=== PATIENT | male | born 1950 | race Caucasian/White ===

== ENCOUNTER 2021-06-12 18:16 | Emergency (ER) | payer MEDICARE, BC ==
[~2021-06-12] VITALS: Ht 177.8 cm; Wt 97.7 kg
[2021-06-12 22:56] LABS: BASOPHILS # (AUTO) 0.1 X10'3 (0-0.2); BASOPHILS % (AUTO) 0.6 % (0-1); EOSINOPHILS # (AUTO) 0.2 X10'3 (0-0.9); EOSINOPHILS % (AUTO) 1.8 % (0-6); HEMATOCRIT 45.9 % (42.0-52.0); HEMOGLOBIN 16.1 g/dl (14.0-17.9); LYMPHOCYTES # (AUTO) 2.6 X10'3 (1.1-4.8); LYMPHOCYTES % (AUTO) 25.9 % (21-51); MEAN CORPUSCULAR HEMOGLOBIN 32.6 PG (27.0-31.0); MEAN CORPUSCULAR HGB CONC 35.2 g/dL (33.0-36.5); MEAN CORPUSCULAR VOLUME 92.8 FL (78-98); MONOCYTES # (AUTO) 0.8 X10'3 (0-0.9); MONOCYTES % (AUTO) 7.8 % (2-12); NEUTROPHILS # (AUTO) 6.3 X10'3 (1.8-7.7); NEUTROPHILS % (AUTO) 63.9 % (42-75); PLATELET COUNT 254 X10'3 (140-440); RED BLOOD COUNT 4.95 X10'6 (4.70-6.10); WHITE BLOOD COUNT 9.9 X10'3 (4.5-11.0)
[2021-06-12 23:02] LABS: ALANINE AMINOTRANSFERASE 42 U/L (12-78); ALBUMIN 3.9 G/DL (3.4-5.0); ALBUMIN/GLOBULIN RATIO 1.1 (1.1-1.5); ALKALINE PHOSPHATASE 69 IU/L (46-116); ANION GAP 8 (8-16); ASPARTATE AMINO TRANSFERASE 27 U/L (10-37); BILIRUBIN,TOTAL 0.5 MG/DL (0.1-1.0); BLOOD UREA NITROGEN 19 MG/DL (7-18); BUN/CREATININE RATIO 18.6 (5.4-32.0); CALCIUM 8.8 MG/DL (8.5-10.1); CHLORIDE 105 MMOL/L (99-107); CREATININE 1.02 MG/DL (0.60-1.10); GLUCOSE 95 MG/DL (70-104); POTASSIUM 3.9 MMOL/L (3.5-5.1); SODIUM 140 MMOL/L (135-145); TOTAL PROTEIN 7.4 G/DL (6.4-8.2); eGFR 72 ML/MIN
[2021-06-12 23:45] VITALS: BP 133/85
== END 2021-06-12 23:46 | disposition home or self-care (01) ==
LOC: ER 18:19
DX: R00.2 Palpitations (principal)
CPT/HCPCS: 36415; 71045; 80053; 83735; 84484; 85025; 93005; 99285

== ENCOUNTER 2022-05-04 10:28 | Day surgery (SDC) | payer MEDICARE, BC ==
[~2022-05-04] VITALS: Ht 177.8 cm; Wt 100.0 kg
[2022-05-04 10:30] VITALS: BP 119/88
[2022-05-04] MEDS ORDERED: FENTANYL CITRATE/PF 50 MCG/1 ML VIAL ONE (10:55)
[2022-05-04] MEDS ORDERED: MIDAZolam 1 MG/ML 5ML VIAL ONE (10:55)
[2022-05-04] MEDS ORDERED: diphenhydrAMINE 50 mg/ml inj ONE (11:27)
[2022-05-04 11:50] VITALS: BP 115/77
[2022-05-04 12:00] VITALS: BP 111/74
[2022-05-04] MEDS ORDERED: FLEC100T35 PO (12:04)
[2022-05-04] MEDS ORDERED: DICY20TA2 PO (12:05)
[2022-05-04] MEDS ORDERED: PRAM2.252 PO (12:07)
[2022-05-04] MEDS ORDERED: LISI10TA27 PO (12:08)
[2022-05-04] MEDS ORDERED: ATOR40TA71 PO (12:08)
[2022-05-04] MEDS ORDERED: CLON1TAB96 PO (12:09)
[2022-05-04 12:10] VITALS: BP 108/68
[2022-05-04] MEDS ORDERED: OXYC1TAB17 PO (12:10)
[2022-05-04 12:20] VITALS: BP 118/88
== END 2022-05-04 12:30 | disposition home or self-care (01) ==
LOC: GI LAB 10:28
PROVIDERS: ATTEND Internal Medicine Gastroenterology
DX: K63.5 Polyp of colon (principal); K64.1 Second degree hemorrhoids; K57.30 Diverticulosis of large intestine without perforation or abscess without bleeding; Z79.899 Other long term (current) drug therapy; Z98.890 Other specified postprocedural states
CPT/HCPCS: 45380; G0500; J1200; J2250; J3010; J7030; Z7512; 43239; 88305; 99152; 99153; A4620

== ENCOUNTER 2023-05-12 10:29 | Inpatient (IN) | payer MEDICARE, BC ==
[~2023-05-12] VITALS: Ht 177.8 cm; Wt 107.5 kg
[~2023-05-12 10:29] MED LIST: ATOR40TA71 PO; CLON1TAB96 PO; DICY20TA2 PO; FLEC100T35 PO; LISI10TA27 PO; OXYC1TAB17 PO; PRAM2.254 PO
[2023-05-12] MEDS ORDERED: normal saline 1000ml 1,000 ML IV ONE (10:40)
[2023-05-12 11:11] LABS: BASOPHILS % (AUTO) 0.2 % (0-1); EOSINOPHILS # (AUTO) 0.1 X10'3 (0-0.9); EOSINOPHILS % (AUTO) 0.2 % (0-6); HEMATOCRIT 49.1 % (42.0-52.0); HEMOGLOBIN 16.6 g/dl (14.0-17.9); LYMPHOCYTES # (AUTO) 1.4 X10'3 (1.1-4.8); LYMPHOCYTES % (AUTO) 5.6 % (21-51); MEAN CORPUSCULAR HEMOGLOBIN 31.8 PG (27.0-31.0); MEAN CORPUSCULAR HGB CONC 33.9 g/dL (33.0-36.5); MEAN CORPUSCULAR VOLUME 93.7 FL (78-98); MEAN PLATELET VOLUME 7.9 FL (7.4-10.4); MONOCYTES # (AUTO) 1.9 X10'3 (0-0.9); MONOCYTES % (AUTO) 7.4 % (2-12); NEUTROPHILS # (AUTO) 22.2 X10'3 (1.8-7.7); NEUTROPHILS % (AUTO) 86.6 % (42-75); PLATELET COUNT 337 X10'3 (140-440); RED BLOOD COUNT 5.24 X10'6 (4.70-6.10); RED CELL DISTRIBUTION WIDTH 13.4 % (11.5-14.5)
[2023-05-12 11:14] LABS: WHITE BLOOD COUNT 25.7 X10'3 (4.5-11.0)
[2023-05-12] MEDS ORDERED: vancomycin inj 1,750 MG in normal saline 500ml IV soln 350 ML IV ONE (11:20)
[2023-05-12 11:28] LABS: TOTAL CELLS COUNTED 100
[2023-05-12 11:29] LABS: LIPASE 20 U/L (16-77); MAGNESIUM 1.9 MG/DL (1.5-2.4); PLATELET ESTIMATE NORMAL; PRO BRAIN NATRIURETIC PEPTIDE 133 PG/ML (0-125); STOMATOCYTES FEW
[2023-05-12] MEDS ORDERED: ondansetron/PF 4mg/2ml inj IV ONE (12:30)
[2023-05-12] MEDS ORDERED: NORMAL SALINE IV ONE (12:40)
[2023-05-12 12:46] LABS: ALANINE AMINOTRANSFERASE 46 U/L (12-78); ALBUMIN 4.1 G/DL (3.4-5.0); ALBUMIN/GLOBULIN RATIO 1.1 (1.1-1.5); ALKALINE PHOSPHATASE 83 IU/L (46-116); ANION GAP 14 (8-16); ASPARTATE AMINO TRANSFERASE 16 U/L (10-37); BLOOD UREA NITROGEN 23 MG/DL (7-18); BUN/CREATININE RATIO 7.7 (10.0-20.0); CALCIUM 9.1 MG/DL (8.5-10.1); CHLORIDE 95 MMOL/L (99-107); GLUCOSE 112 MG/DL (70-104); POTASSIUM 4.1 MMOL/L (3.5-5.1); SODIUM 132 MMOL/L (135-145); eCRCL 23 ML/MIN; eGFR 21 ML/MIN
[2023-05-12] MEDS ORDERED: vancomycin 125mg/5ml ORAL solution 5ml UD oral syringe PO SCH (14:00)
[2023-05-12 14:53] LABS: BILIRUBIN,URINE SMALL (Neg); CLARITY,URINE SLIGHTLY CLOUDY (Clear); GLUCOSE, URINE NEGATIVE (Neg); KETONES,URINE NEGATIVE (Neg); LEUKOCYTE ESTERASE ,URINE NEGATIVE (Neg); NITRITES, URINE NEGATIVE (Neg); OCCULT BLOOD,URINE NEGATIVE (Neg); PH,URINE 5.5 (4.8-8.0); PROTEIN,URINE TRACE mg/dl (Neg); UROBILINOGEN,URINE 0.2 E.U/dL (0.2-1.0)
[2023-05-12 14:55] LABS: COLOR,URINE DARK YELLOW (Yellow); UA COLLECTION TYPE VOIDED
[2023-05-12 15:00] LABS: BACTERIA,URINE FEW /HPF (Neg); HYALINE CASTS >30 /LPF (NEGATIVE); MUCUS STRANDS MANY /LPF (Neg); RBC,URINE NONE SEEN /HPF (0-2); SQUAMOUS EPITHELIAL CELL,UR FEW /LPF (FEW); URIC ACID CRYSTALS 2+ /HPF (NEGATIVE); WBC,URINE 0-4 /HPF (0-4)
[2023-05-12] MEDS ORDERED: ondansetron/PF 4mg/2ml inj IV PRN (15:10)
[2023-05-12] MEDS ORDERED: magnesium 2GM in 50ml NS 50 ML IV PRN (15:10)
[2023-05-12] MEDS ORDERED: magnesium Cl slow-release 64mg tablet PO PRN (15:10)
[2023-05-12] MEDS ORDERED: acetaminophen 325mg tablet PO PRN ×2 (15:10)
[2023-05-12] MEDS ORDERED: magnesium 4gm in 100ml NS 100 ML IV PRN (15:10)
[2023-05-12] MEDS ORDERED: potassium Cl 20 mEq SR tablet PO PRN ×2 (15:10)
[2023-05-12] MEDS ORDERED: potassium Cl 40MEQ/1/2NS 520ml 520 ML IV PRN (15:10)
[2023-05-12] MEDS: normal saline 1000ml 1,000 ML IV SCH ×2 (15:10→23:25)
[2023-05-12 15:28] LABS: C DIFF ANTIGEN POSITIVE (NEGATIVE); C DIFF SPECIMEN=DIARRHEA? ACCEPTABLE
[2023-05-12 15:29] LABS: C DIFFICILE TOXINS A&B POSITIVE (Neg)
[2023-05-12 17:28] LABS: BILIRUBIN,URINE NEGATIVE (Neg); CLARITY,URINE CLEAR (Clear); COLOR,URINE YELLOW (Yellow); GLUCOSE, URINE NEGATIVE (Neg); KETONES,URINE NEGATIVE (Neg); LEUKOCYTE ESTERASE ,URINE NEGATIVE (Neg); NITRITES, URINE NEGATIVE (Neg); OCCULT BLOOD,URINE NEGATIVE (Neg); PH,URINE 5.5 (4.8-8.0); PROTEIN,URINE NEGATIVE (Neg); UROBILINOGEN,URINE 0.2 E.U/dL (0.2-1.0)
[2023-05-12 17:29] LABS: UA COLLECTION TYPE VOIDED
[2023-05-12 17:45] LABS: C-REACTIVE PROTEIN 14.89 MG/DL (0.0-0.5)
[2023-05-12] MEDS ORDERED: piperacillin/tazo 4.5gm/100ml 100 ML IV STA (18:16)
[2023-05-12 19:30] VITALS: BP 105/55; PULSE 76; RESP 15; TEMP 97.6; O2SAT 95
[2023-05-12] MEDS: HYDROcodone/acetaminophen 5mg/325mg tablet PO PRN (19:49)
[2023-05-12] MEDS: heparin, porcine 5000 units/ml vial SQ SCH (19:52)
[2023-05-12 20:00] VITALS: BP_SYST 105; BP_SYST 113; BP_SYST 117; BP_DIAS 55; BP_DIAS 60; BP_DIAS 61; PULSE 70; PULSE 73; PULSE 76
[2023-05-12 20:20] LABS: BASOPHILS # (AUTO) 0.1 X10'3 (0-0.2); BASOPHILS % (AUTO) 0.3 % (0-1); EOSINOPHILS # (AUTO) 0.1 X10'3 (0-0.9); EOSINOPHILS % (AUTO) 0.7 % (0-6); HEMATOCRIT 40.7 % (42.0-52.0); LYMPHOCYTES % (AUTO) 11.2 % (21-51); MEAN CORPUSCULAR HEMOGLOBIN 32.3 PG (27.0-31.0); MEAN CORPUSCULAR HGB CONC 34.5 g/dL (33.0-36.5); MEAN CORPUSCULAR VOLUME 93.6 FL (78-98); MEAN PLATELET VOLUME 8.1 FL (7.4-10.4); MONOCYTES # (AUTO) 1.6 X10'3 (0-0.9); MONOCYTES % (AUTO) 8.9 % (2-12); NEUTROPHILS # (AUTO) 14.4 X10'3 (1.8-7.7); NEUTROPHILS % (AUTO) 78.9 % (42-75); PLATELET COUNT 238 X10'3 (140-440); RED BLOOD COUNT 4.34 X10'6 (4.70-6.10); RED CELL DISTRIBUTION WIDTH 13.1 % (11.5-14.5); WHITE BLOOD COUNT 18.3 X10'3 (4.5-11.0)
[2023-05-12] MEDS ORDERED: PER5325T PO (21:39)
[2023-05-12] MEDS ORDERED: PRAM1TAB6 PO (21:42)
[2023-05-12] MEDS ORDERED: ALBU90AE2 IH (21:45)
[2023-05-12 22:00] VITALS: BP 97/60; PULSE 67; RESP 18; TEMP 97.8; O2SAT 94
[2023-05-12] MEDS ORDERED: clonazePAM 1mg tablet PO ONE (22:00)
[2023-05-12] MEDS ORDERED: pramipexole 0.25mg tablet PO ONE (22:00)
[2023-05-12] MEDS: vancomycin 125mg/5ml ORAL solution 5ml UD oral syringe PO SCH (22:32)
[2023-05-12 22:49] VITALS: RESP 18; O2SAT 95
--- NOTE | 2023-05-12 23:12 | NUR ---
MD okayed to give pt 1mg clonazepam and 1mg pramipexole per pt's request.
[2023-05-12] MEDS: morphine 2 MG/ML inj. syringe IV PRN (23:26)
[2023-05-13] MEDS: vancomycin 125mg/5ml ORAL solution 5ml UD oral syringe PO SCH ×4 (01:52→19:26)
[2023-05-13] MEDS ORDERED: ringers solution, lacted 1,000 ML IV ONE (02:10)
[2023-05-13] MEDS: oxyCODONE/APAP 5-325mg tablet PO PRN ×3 (02:51→12:58)
--- NOTE | 2023-05-13 02:53 | NUR ---
notified of pt having blood in stool ,new order is to give Lactated ringer bolus and order for H&H. MD also okayed oxycodone for pt ,per pt report that is what works for him at home.
--- NOTE | 2023-05-13 06:24 | NUR ---
report given to Tiarra
[2023-05-13 06:30] VITALS: BP 106/50; PULSE 62; RESP 20; TEMP 98.4; O2SAT 94
[2023-05-13 07:09] LABS: HEMATOCRIT 39.9 % (42.0-52.0); HEMOGLOBIN 13.5 g/dl (14.0-17.9); MEAN CORPUSCULAR HGB CONC 33.9 g/dL (33.0-36.5); MEAN CORPUSCULAR VOLUME 94.4 FL (78-98); MEAN PLATELET VOLUME 8.2 FL (7.4-10.4); PLATELET COUNT 235 X10'3 (140-440); RED BLOOD COUNT 4.23 X10'6 (4.70-6.10); RED CELL DISTRIBUTION WIDTH 13.4 % (11.5-14.5); WHITE BLOOD COUNT 14.6 X10'3 (4.5-11.0)
[2023-05-13 07:10] LABS: BASOPHILS % (AUTO) 0.3 % (0-1); EOSINOPHILS # (AUTO) 0.4 X10'3 (0-0.9); EOSINOPHILS % (AUTO) 2.6 % (0-6); HEMATOCRIT 40.1 % (42.0-52.0); HEMOGLOBIN 13.6 g/dl (14.0-17.9); LYMPHOCYTES # (AUTO) 2.2 X10'3 (1.1-4.8); LYMPHOCYTES % (AUTO) 14.5 % (21-51); MEAN CORPUSCULAR HGB CONC 33.9 g/dL (33.0-36.5); MEAN CORPUSCULAR VOLUME 94.6 FL (78-98); MEAN PLATELET VOLUME 8.4 FL (7.4-10.4); MONOCYTES # (AUTO) 1.4 X10'3 (0-0.9); MONOCYTES % (AUTO) 9.1 % (2-12); NEUTROPHILS # (AUTO) 11.3 X10'3 (1.8-7.7); NEUTROPHILS % (AUTO) 73.5 % (42-75); PLATELET COUNT 234 X10'3 (140-440); RED BLOOD COUNT 4.24 X10'6 (4.70-6.10); RED CELL DISTRIBUTION WIDTH 13.4 % (11.5-14.5); WHITE BLOOD COUNT 15.4 X10'3 (4.5-11.0)
[2023-05-13] MEDS: normal saline 1000ml 1,000 ML IV SCH ×3 (07:10→23:10)
[2023-05-13 07:21] LABS: ALANINE AMINOTRANSFERASE 32 U/L (12-78); ALBUMIN 2.9 G/DL (3.4-5.0); ALBUMIN/GLOBULIN RATIO 0.9 (1.1-1.5); ALKALINE PHOSPHATASE 60 IU/L (46-116); ANION GAP 8 (8-16); ASPARTATE AMINO TRANSFERASE 18 U/L (10-37); BILIRUBIN,TOTAL 0.5 MG/DL (0.1-1.0); BLOOD UREA NITROGEN 19 MG/DL (7-18); BUN/CREATININE RATIO 14.8 (10.0-20.0); CALCIUM 8.5 MG/DL (8.5-10.1); CHLORIDE 104 MMOL/L (99-107); CREATININE 1.28 MG/DL (0.60-1.10); GLUCOSE 102 MG/DL (70-104); SODIUM 136 MMOL/L (135-145); TOTAL CARBON DIOXIDE 24.5 MMOL/L (24-32); TOTAL PROTEIN 6.1 G/DL (6.4-8.2); eCRCL 54 ML/MIN; eGFR 55 ML/MIN
[2023-05-13] MEDS: morphine 2 MG/ML inj. syringe IV PRN (07:58)
[2023-05-13] MEDS: atorvastatin 20mg tablet PO SCH (07:58)
[2023-05-13] MEDS: flecainide 50mg tablet PO SCH (07:59)
[2023-05-13] MEDS: heparin, porcine 5000 units/ml vial SQ SCH ×2 (08:00→19:27)
[2023-05-13 10:30] VITALS: BP 112/68; PULSE 61; RESP 18; TEMP 97.9; O2SAT 97
[2023-05-13] MEDS: HYDROcodone/acetaminophen 5mg/325mg tablet PO PRN (12:57)
[2023-05-13] MEDS: HYDROmorphone inj. 0.5 MG/0.5 ML DISP.SYRIN IV PRN ×3 (13:37→23:28)
[2023-05-13 15:30] VITALS: BP 108/55; PULSE 69; RESP 14; TEMP 97.6; O2SAT 99
[2023-05-13 18:00] VITALS: BP 147/81; PULSE 66; RESP 20; TEMP 97.7; O2SAT 100
[2023-05-13 20:00] VITALS: RESP 20; O2SAT 98
[2023-05-13 22:00] VITALS: BP 114/60; PULSE 67; RESP 18; TEMP 98.3; O2SAT 97
[2023-05-13] MEDS: clonazePAM 1mg tablet PO PRN (23:36)
[2023-05-13] MEDS: pramipexole 1mg tablet PO PRN (23:37)
[2023-05-14] VITALS (7 sets, daily range): BP systolic 96–142; BP diastolic 47–71; PULSE 62–69; RESP 17–20; TEMP 97.6–98; O2SAT 93–98
[2023-05-14] MEDS: vancomycin 125mg/5ml ORAL solution 5ml UD oral syringe PO SCH ×4 (01:46→19:03)
[2023-05-14] MEDS: normal saline 1000ml 1,000 ML IV SCH ×3 (03:41→23:10)
--- NOTE | 2023-05-14 06:22 | NUR ---
Problems reprioritized. Patient report given, questions answered & plan of care reviewed with Tiarra.
[2023-05-14] MEDS: HYDROmorphone inj. 0.5 MG/0.5 ML DISP.SYRIN IV PRN ×2 (07:30→21:37)
[2023-05-14] MEDS: heparin, porcine 5000 units/ml vial SQ SCH ×2 (07:30→19:06)
[2023-05-14] MEDS: flecainide 50mg tablet PO SCH ×3 (07:30→19:04)
[2023-05-14] MEDS: atorvastatin 20mg tablet PO SCH (07:30)
[2023-05-14 08:42] LABS: BASOPHILS # (AUTO) 0.1 X10'3 (0-0.2); BASOPHILS % (AUTO) 0.7 % (0-1); EOSINOPHILS # (AUTO) 0.5 X10'3 (0-0.9); EOSINOPHILS % (AUTO) 5.7 % (0-6); HEMATOCRIT 38.9 % (42.0-52.0); HEMOGLOBIN 13.2 g/dl (14.0-17.9); LYMPHOCYTES % (AUTO) 21.8 % (21-51); MEAN CORPUSCULAR HGB CONC 34.1 g/dL (33.0-36.5); MEAN CORPUSCULAR VOLUME 93.9 FL (78-98); MEAN PLATELET VOLUME 8.3 FL (7.4-10.4); MONOCYTES # (AUTO) 1.1 X10'3 (0-0.9); MONOCYTES % (AUTO) 11.5 % (2-12); NEUTROPHILS # (AUTO) 5.6 X10'3 (1.8-7.7); NEUTROPHILS % (AUTO) 60.3 % (42-75); PLATELET COUNT 209 X10'3 (140-440); RED BLOOD COUNT 4.14 X10'6 (4.70-6.10); RED CELL DISTRIBUTION WIDTH 12.9 % (11.5-14.5); WHITE BLOOD COUNT 9.4 X10'3 (4.5-11.0)
[2023-05-14] MEDS ORDERED: FLEC100T35 PO (08:48)
[2023-05-14 09:11] LABS: ALANINE AMINOTRANSFERASE 27 U/L (12-78); ALBUMIN 2.7 G/DL (3.4-5.0); ALBUMIN/GLOBULIN RATIO 0.8 (1.1-1.5); ALKALINE PHOSPHATASE 56 IU/L (46-116); ANION GAP 7 (8-16); ASPARTATE AMINO TRANSFERASE 15 U/L (10-37); BILIRUBIN,TOTAL 0.4 MG/DL (0.1-1.0); BLOOD UREA NITROGEN 8 MG/DL (7-18); BUN/CREATININE RATIO 8.3 (10.0-20.0); CALCIUM 8.4 MG/DL (8.5-10.1); CHLORIDE 104 MMOL/L (99-107); CREATININE 0.96 MG/DL (0.60-1.10); GLUCOSE 99 MG/DL (70-104); POTASSIUM 3.9 MMOL/L (3.5-5.1); SODIUM 138 MMOL/L (135-145); TOTAL CARBON DIOXIDE 26.6 MMOL/L (24-32); TOTAL PROTEIN 5.9 G/DL (6.4-8.2); eCRCL 72 ML/MIN; eGFR 77 ML/MIN
[2023-05-14] MEDS: oxyCODONE/APAP 5-325mg tablet PO PRN (19:06)
--- NOTE | 2023-05-14 22:05 | NUR ---
Per pt's request iv fluid was paused this night. According to pt ,He just wants to sleep without any disturbance.
[2023-05-15] VITALS (8 sets, daily range): BP systolic 117–135; BP diastolic 67–94; PULSE 55–80; RESP 16–20; TEMP 97.3–98.3; O2SAT 93–97
[2023-05-15] MEDS: clonazePAM 1mg tablet PO PRN ×2 (00:45→22:00)
[2023-05-15] MEDS: pramipexole 1mg tablet PO PRN ×2 (00:45→22:00)
[2023-05-15] MEDS: vancomycin 125mg/5ml ORAL solution 5ml UD oral syringe PO SCH ×4 (01:57→19:14)
[2023-05-15] MEDS: HYDROmorphone inj. 0.5 MG/0.5 ML DISP.SYRIN IV PRN ×5 (01:57→22:01)
--- NOTE | 2023-05-15 06:24 | NUR ---
Problems reprioritized. Patient report given, questions answered & plan of care reviewed with
[2023-05-15] MEDS: normal saline 1000ml 1,000 ML IV SCH (07:44)
[2023-05-15] MEDS: atorvastatin 20mg tablet PO SCH (07:45)
[2023-05-15] MEDS: flecainide 50mg tablet PO SCH ×2 (07:45→19:14)
[2023-05-15] MEDS: heparin, porcine 5000 units/ml vial SQ SCH ×2 (07:45→19:14)
[2023-05-15 08:00] LABS: BASOPHILS # (AUTO) 0.1 X10'3 (0-0.2); BASOPHILS % (AUTO) 0.8 % (0-1); EOSINOPHILS # (AUTO) 0.7 X10'3 (0-0.9); EOSINOPHILS % (AUTO) 6.6 % (0-6); HEMATOCRIT 38.7 % (42.0-52.0); HEMOGLOBIN 13.4 g/dl (14.0-17.9); LYMPHOCYTES # (AUTO) 2.7 X10'3 (1.1-4.8); LYMPHOCYTES % (AUTO) 27.6 % (21-51); MEAN CORPUSCULAR HGB CONC 34.5 g/dL (33.0-36.5); MEAN CORPUSCULAR VOLUME 92.7 FL (78-98); MEAN PLATELET VOLUME 7.8 FL (7.4-10.4); MONOCYTES # (AUTO) 1.1 X10'3 (0-0.9); MONOCYTES % (AUTO) 11.2 % (2-12); NEUTROPHILS # (AUTO) 5.3 X10'3 (1.8-7.7); NEUTROPHILS % (AUTO) 53.8 % (42-75); PLATELET COUNT 238 X10'3 (140-440); RED BLOOD COUNT 4.18 X10'6 (4.70-6.10); RED CELL DISTRIBUTION WIDTH 12.9 % (11.5-14.5); WHITE BLOOD COUNT 9.8 X10'3 (4.5-11.0)
[2023-05-15 08:29] LABS: ALANINE AMINOTRANSFERASE 35 U/L (12-78); ALBUMIN 2.9 G/DL (3.4-5.0); ALBUMIN/GLOBULIN RATIO 0.9 (1.1-1.5); ALKALINE PHOSPHATASE 60 IU/L (46-116); ANION GAP 6 (8-16); ASPARTATE AMINO TRANSFERASE 19 U/L (10-37); BILIRUBIN,TOTAL 0.4 MG/DL (0.1-1.0); BLOOD UREA NITROGEN 9 MG/DL (7-18); CALCIUM 8.7 MG/DL (8.5-10.1); CHLORIDE 103 MMOL/L (99-107); GLUCOSE 92 MG/DL (70-104); POTASSIUM 3.5 MMOL/L (3.5-5.1); SODIUM 137 MMOL/L (135-145); TOTAL CARBON DIOXIDE 27.6 MMOL/L (24-32); TOTAL PROTEIN 6.3 G/DL (6.4-8.2); eCRCL 69 ML/MIN; eGFR 73 ML/MIN
[2023-05-15] MEDS ORDERED: ondansetron 4mg rapidly disintigrating tab PO PRN (12:47)
[2023-05-15] MEDS: lactobacillus rhamnosus 10,000 MMU CELLS/CAPSULE PO SCH ×2 (15:28→19:14)
--- NOTE | 2023-05-15 18:34 | NUR ---
Problems reprioritized. Patient report given to DANIKA CASTILLO, questions answered & plan of care reviewed with .
[2023-05-16] VITALS (11 sets, daily range): BP systolic 107–133; BP diastolic 62–77; PULSE 58–73; RESP 12–19; TEMP 97.5–98.2; O2SAT 92–99
[2023-05-16] MEDS: vancomycin 125mg/5ml ORAL solution 5ml UD oral syringe PO SCH ×4 (01:07→19:49)
--- NOTE | 2023-05-16 06:33 | NUR ---
Patient in room PCU 3019. I have received report from DANIKA CASTILLO and had the opportunity to ask questions and assume patient care.
[2023-05-16 07:00] LABS: BASOPHILS # (AUTO) 0.1 X10'3 (0-0.2); BASOPHILS % (AUTO) 0.8 % (0-1); EOSINOPHILS # (AUTO) 0.6 X10'3 (0-0.9); EOSINOPHILS % (AUTO) 6.6 % (0-6); HEMATOCRIT 39.3 % (42.0-52.0); HEMOGLOBIN 13.7 g/dl (14.0-17.9); LYMPHOCYTES # (AUTO) 2.2 X10'3 (1.1-4.8); LYMPHOCYTES % (AUTO) 23.2 % (21-51); MEAN CORPUSCULAR HEMOGLOBIN 32.3 PG (27.0-31.0); MEAN CORPUSCULAR HGB CONC 34.9 g/dL (33.0-36.5); MEAN CORPUSCULAR VOLUME 92.6 FL (78-98); MEAN PLATELET VOLUME 7.8 FL (7.4-10.4); MONOCYTES % (AUTO) 10.9 % (2-12); NEUTROPHILS # (AUTO) 5.6 X10'3 (1.8-7.7); NEUTROPHILS % (AUTO) 58.5 % (42-75); PLATELET COUNT 284 X10'3 (140-440); RED BLOOD COUNT 4.24 X10'6 (4.70-6.10); RED CELL DISTRIBUTION WIDTH 12.9 % (11.5-14.5); WHITE BLOOD COUNT 9.6 X10'3 (4.5-11.0)
[2023-05-16 07:23] LABS: ALANINE AMINOTRANSFERASE 49 U/L (12-78); ALBUMIN 2.9 G/DL (3.4-5.0); ALBUMIN/GLOBULIN RATIO 0.8 (1.1-1.5); ALKALINE PHOSPHATASE 68 IU/L (46-116); ANION GAP 7 (8-16); ASPARTATE AMINO TRANSFERASE 29 U/L (10-37); BILIRUBIN,TOTAL 0.3 MG/DL (0.1-1.0); BLOOD UREA NITROGEN 8 MG/DL (7-18); BUN/CREATININE RATIO 8.7 (10.0-20.0); CALCIUM 8.9 MG/DL (8.5-10.1); CHLORIDE 102 MMOL/L (99-107); CREATININE 0.92 MG/DL (0.60-1.10); GLUCOSE 108 MG/DL (70-104); POTASSIUM 3.6 MMOL/L (3.5-5.1); SODIUM 137 MMOL/L (135-145); TOTAL PROTEIN 6.4 G/DL (6.4-8.2); eCRCL 75 ML/MIN; eGFR 81 ML/MIN
[2023-05-16] MEDS: lactobacillus rhamnosus 10,000 MMU CELLS/CAPSULE PO SCH ×2 (07:37→19:39)
[2023-05-16] MEDS: atorvastatin 20mg tablet PO SCH (07:37)
[2023-05-16] MEDS: flecainide 50mg tablet PO SCH ×2 (07:37→19:40)
[2023-05-16] MEDS: heparin, porcine 5000 units/ml vial SQ SCH ×2 (07:38→19:42)
--- NOTE | 2023-05-16 10:38 | NUR ---
Initial: Pt admit for sigmoid diverticulitis, sepsis, hypotension, dizziness, RYAN on CKD, and palpitations. Pt currently on a regular diet and eating well, documented with average 90% PO intake with 0% PO intake of one meal meeting 100% estimated energy needs and 78% estimated protein needs. LBM 05/15 per EMR documented with diarrhea. Per resident note pt positive for C.diff. Pt started on a routine probiotic 05/15. No nutrition intervention implemented at this time. Will continue to follow and make recommendations as appropriate. Recommendations: 1) Consider changing to low fiber diet d/t diverticulitis 2) Monitor need for ONS/additional protein 3) Continue routine probiotic 4) Weekly scaled weights Addendum: 05/16/23 at [address] Amended: Links added.
[2023-05-16] MEDS: oxyCODONE/APAP 5-325mg tablet PO PRN ×2 (11:21→19:41)
--- NOTE | 2023-05-16 11:24 | NUR ---
Message: JONATHAN HAQUE, [facility], [id number]. RE: [phone]. PT. WANTS TO KNOW IF HE CAN GET A CHEST X-RAY FOR [facility].
[2023-05-16] MEDS ORDERED: chloestyramine/aspartame 4gm packet PO SCH (14:15)
[2023-05-16] MEDS ORDERED: albuterol 2.5 MG/3 ML nebule NEB PRN (16:20)
--- NOTE | 2023-05-16 18:15 | NUR ---
Patient in room [address] I have received report from DANIKA CASTILLO and had the opportunity to ask questions and assume patient care. Addendum: 05/16/23 at 2204 by Deanna Jiang RN 181 Patient in room [address] I have received report from SHABNAM CASTILLO and had the opportunity to ask questions and assume patient care.
--- NOTE | 2023-05-16 18:19 | NUR ---
Problems reprioritized. Patient report given TO MELQUIADES CASTILLO, questions answered & plan of care reviewed with .
[2023-05-16] MEDS: clonazePAM 1mg tablet PO PRN (22:57)
[2023-05-16] MEDS: pramipexole 1mg tablet PO PRN (22:59)
[2023-05-17] MEDS: vancomycin 125mg/5ml ORAL solution 5ml UD oral syringe PO SCH ×2 (01:39→08:00)
[2023-05-17 06:00] VITALS: BP 106/63; PULSE 76; RESP 16; TEMP 97.3; O2SAT 96
--- NOTE | 2023-05-17 06:30 | NUR ---
Problems reprioritized. Patient report given, questions answered & plan of care reviewed with JONATHAN BOOGIE.
[2023-05-17 07:38] VITALS: PULSE 54; RESP 16; O2SAT 94
[2023-05-17 07:47] LABS: BASOPHILS # (AUTO) 0.1 X10'3 (0-0.2); BASOPHILS % (AUTO) 0.6 % (0-1); EOSINOPHILS # (AUTO) 0.7 X10'3 (0-0.9); EOSINOPHILS % (AUTO) 6.2 % (0-6); HEMATOCRIT 39.2 % (42.0-52.0); HEMOGLOBIN 13.5 g/dl (14.0-17.9); LYMPHOCYTES # (AUTO) 2.8 X10'3 (1.1-4.8); LYMPHOCYTES % (AUTO) 26.1 % (21-51); MEAN CORPUSCULAR HEMOGLOBIN 32.1 PG (27.0-31.0); MEAN CORPUSCULAR HGB CONC 34.5 g/dL (33.0-36.5); MEAN PLATELET VOLUME 7.7 FL (7.4-10.4); MONOCYTES # (AUTO) 1.2 X10'3 (0-0.9); MONOCYTES % (AUTO) 11.1 % (2-12); NEUTROPHILS # (AUTO) 5.9 X10'3 (1.8-7.7); PLATELET COUNT 266 X10'3 (140-440); RED BLOOD COUNT 4.21 X10'6 (4.70-6.10); RED CELL DISTRIBUTION WIDTH 12.6 % (11.5-14.5); WHITE BLOOD COUNT 10.5 X10'3 (4.5-11.0)
[2023-05-17 08:00] VITALS: RESP 17; O2SAT 96
[2023-05-17 08:09] LABS: ALANINE AMINOTRANSFERASE 68 U/L (12-78); ALBUMIN 2.9 G/DL (3.4-5.0); ALBUMIN/GLOBULIN RATIO 0.9 (1.1-1.5); ALKALINE PHOSPHATASE 66 IU/L (46-116); ANION GAP 6 (8-16); ASPARTATE AMINO TRANSFERASE 41 U/L (10-37); BILIRUBIN,TOTAL 0.3 MG/DL (0.1-1.0); BLOOD UREA NITROGEN 16 MG/DL (7-18); BUN/CREATININE RATIO 15.2 (10.0-20.0); CALCIUM 8.8 MG/DL (8.5-10.1); CHLORIDE 103 MMOL/L (99-107); CREATININE 1.05 MG/DL (0.60-1.10); GLUCOSE 100 MG/DL (70-104); SODIUM 138 MMOL/L (135-145); TOTAL CARBON DIOXIDE 29.1 MMOL/L (24-32); TOTAL PROTEIN 6.2 G/DL (6.4-8.2); eCRCL 66 ML/MIN; eGFR 69 ML/MIN
[2023-05-17] MEDS: lactobacillus rhamnosus 10,000 MMU CELLS/CAPSULE PO SCH (09:23)
[2023-05-17] MEDS: heparin, porcine 5000 units/ml vial SQ SCH (09:24)
[2023-05-17] MEDS: atorvastatin 20mg tablet PO SCH (09:24)
[2023-05-17] MEDS: flecainide 50mg tablet PO SCH (09:25)
[2023-05-17] MEDS ORDERED: VANC125C11 PO (10:25)
[2023-05-17] MEDS ORDERED: LACT1CAP26 PO (10:25)
--- NOTE | 2023-05-17 10:37 | NUR ---
I agree with WELT BUTTER HAND's assessment. Pt has no current complaints.
--- NOTE | 2023-05-17 11:44 | NUR ---
Patient discharged home. Vital signs stable. IV removed from left hand. All discharge instructions given to patient. patient education provided to both family and patient. All needs met by staff. All patient belongings left with patient.
== END 2023-05-17 11:57 | disposition home or self-care (01) | DRG 871 ==
LOC: ER 10:29 → ED HOLD 15:16 → PCU 3S 19:00
PROVIDERS: ADMIT Internal Medicine; ATTEND Internal Medicine
DX: A41.9 Sepsis, unspecified organism (principal); R57.1 Hypovolemic shock; R65.21 Severe sepsis with septic shock; A04.72 Enterocolitis due to Clostridium difficile, not specified as recurrent; K57.32 Diverticulitis of large intestine without perforation or abscess without bleeding; N17.9 Acute kidney failure, unspecified; E87.1 Hypo-osmolality and hyponatremia; G25.81 Restless legs syndrome; R05.9 Cough, unspecified; I12.9 Hypertensive chronic kidney disease with stage 1 through stage 4 chronic kidney disease, or unspecified chronic kidney disease; N18.9 Chronic kidney disease, unspecified; R55 Syncope and collapse; E78.5 Hyperlipidemia, unspecified; I48.91 Unspecified atrial fibrillation; Z79.899 Other long term (current) drug therapy; Z87.01 Personal history of pneumonia (recurrent); Z83.3 Family history of diabetes mellitus
CPT/HCPCS: 36415; 71045; 74176; 80053; 81001; 81003; 83605; 83690; 83735; 83880; 84145; 84484; 85007; 85025; 85027; 85651; 86140; 87040; 87081; 87324; 87449; 94640; 94664; 94760; 99285; J1170; J1644; J2270; J2405; J2543; J3370; J7030; J7040; J7120